=== PATIENT | female | born 1960 | race Caucasian/White ===

== ENCOUNTER → 2016-05-27 | Outpatient (CLI) | payer BC ==
--- NOTE | 2016-05-27 09:06 | MR ---
EXAMINATION TYPE: MR brain wo/w con, MR angio head wo con DATE OF EXAM: 05/27/2016 8:27 AM COMPARISON: 01/25/2012 HISTORY: 55-year-old female with headache, dizziness, right facial numbness, evaluate for TIA, cerebr al infarction. ( Headache, dizziness, rt facial numbness (accession [id number]) TECHNIQUE: Multiplanar, multisequence images of the brain and brainstem were acquired before and aft er administration of 14 mL IV MultiHance. Diffusion weighted imaging was performed. Additional high -resolution 3-D [id number] imaging of the [place] was performed. Rotational 3-D reconst ructions were generated on a dedicated independent workstation. FINDINGS: MRI: No evidence for acute infarction, hemorrhage, mass, mass effect, midline shift, herniation, effacemen t of basal cisterns, or extra-axial fluid collection. The ventricles and sulci are age-appropriate. Major intracranial flow voids are intact. T2/FLAIR weighted sequences show overall stable mild scattered burden of white white matter change in the subcortical and deep white matter of both cerebral hemispheres as well as the right paramedian p ons. Overall findings are stable. A few new foci may be present as compared to 2011. Midline structures demonstrate normal morphology. Minimal benign cerebellar tonsillar ectopia of 2 mm . Otherwise, the craniocervical junction is normal. Post contrast images demonstrate no evidence of pathologic enhancement. Moderate mucosal thickening ethmoid air cells. Otherwise, there is mild mucosal thickening in the fro ntal and maxillary sinuses. Leftward nasal septal deviation. Globes are intact. There is partial opac ification of the left mastoid air cells also noted. 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 Otherwise, no significant stenosis, arterial occlusion, or aneurysmal changes seen. IMPRESSION: 1. No acute intracranial abnormality seen. 2. Overall stable mild scattered burden of T2 bright white matter change, nonspecific, but likely ref lecting chronic small vessel ischemic disease. Only a few foci of bright signal may be new from 2012 . 3. Chronic paranasal sinus disease, moderate within the ethmoid air cells. 4. Opacification in the left mastoid air cells could represent retained secretions. Correlate for any mastoid pain to exclude mastoiditis. 5. 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 Otherwise, unremarkable MRA.
== END | disposition home or self-care (01) ==
LOC: RADMRIMAIN 07:33
PROVIDERS: ATTEND Psychiatry & Neurology Neurology
DX: G45.9 Transient cerebral ischemic attack, unspecified (principal); I63.9 Cerebral infarction, unspecified
CPT/HCPCS: 70544; 70553; A9577

== ENCOUNTER → 2018-12-03 | Outpatient (CLI) | payer BC ==
--- NOTE | 2018-12-04 13:35 | MM ---
Reason for exam: screening (asymptomatic). Last mammogram was performed 4 years and 11 months ago. History: Patient is postmenopausal. Cyst aspiration of the right breast, 2002. Physical Findings: A clinical breast exam by your physician is recommended on an annual basis and results should be correlated with mammographic findings. MG 3D Screening Mammo W/Cad Bilateral CC and MLO view(s) were taken. Prior study comparison: January 06, 2014, bilateral MG screening mammo w CAD. January 03, 2013, bilateral digital screening mammo w/CAD. The breast tissue is heterogeneously dense. This may lower the sensitivity of mammography. There are benign appearing round calcifications bilaterally. There is no discrete abnormality. ASSESSMENT: Benign, BI-RAD 2 RECOMMENDATION: Routine screening mammogram of both breasts in 1 year.
== END | disposition home or self-care (01) ==
LOC: RADMAMWWP 06:53
PROVIDERS: ATTEND Family Medicine
DX: Z12.31 Encounter for screening mammogram for malignant neoplasm of breast (principal)
CPT/HCPCS: 77063; 77067

== ENCOUNTER → 2019-11-14 | Outpatient (CLI) | payer BC ==
--- NOTE | 2019-11-14 13:01 | CT ---
EXAMINATION TYPE: CT abdomen pelvis w con DATE OF EXAM: 11/14/2019 COMPARISON: CT 05/20/2015 HISTORY: Collagenous colitis. Right lower quadrant pain with right leg swelling x [address] DLP: 955.5 mGycm Automated exposure control for dose reduction was used. TECHNIQUE: Helical acquisition of images from the lung bases through the pelvis have been completed. CONTRAST: Performed with Oral Contrast and with IV Contrast, patient injected with 100 mL of Isovue M300. FINDINGS: Postop changes are noted at the gastroesophageal junction. LUNG BASES: No significant abnormality is appreciated. AORTA: No significant abnormality is appreciated. LIVER/GB: The liver is enlarged and shows low-attenuation likely due to hepatic steatosis, gallbladde r is normal. PANCREAS: No significant abnormality is seen. SPLEEN: No significant abnormality is seen. ADRENALS: No significant abnormality is seen. KIDNEYS: No significant abnormality is seen. Cortical cyst associated with the right kidney in exophy tic location is stable. Normal excretion. REPRODUCTIVE ORGANS: No significant abnormality is seen BOWEL: There are some distended loops of small bowel in the mid jejunum, left abdomen some thickenin g of the fourth portion of duodenum ocasio are noted. The appendix is normal. FREE AIR: No Free Air visible. ASCITES: None visible. PELVIC ADENOPATHY: None visualized. RETROPERITONEAL ADENOPATHY: No Retroperitoneal Adenopathy visible. URINARY BLADDER: No significant abnormality is seen. OSSEOUS STRUCTURES: No significant abnormality is seen. IMPRESSION: SOME FOCALLY DILATED LOOPS OF SMALL BOWEL WITHOUT EVIDENT OBSTRUCTION IN THE JEJUNUM IS INDETERMINATE WITH SOME POSSIBLE LOCAL ENTERITIS, THERE IS NO EVIDENT BOWEL OBSTRUCTION. HEPATOMEGALY, HEPATIC DANIELLE ATOSIS..
== END | disposition home or self-care (01) ==
LOC: RADCTMAIN 10:07
PROVIDERS: ATTEND Family Medicine
DX: K76.0 Fatty (change of) liver, not elsewhere classified (principal); R16.0 Hepatomegaly, not elsewhere classified; K63.89 Other specified diseases of intestine
CPT/HCPCS: 74177; Q9967 ×2

== ENCOUNTER → 2021-09-19 | Outpatient (CLI) | payer BC ==
--- NOTE | 2021-09-20 08:29 | MM ---
Reason for Exam: Screening (asymptomatic). Last mammogram was performed 2 year(s) and 10 month(s) ago. Patient History: Menarche at age 16. First Full-Term at age 19. Left ovary removed at age 50. Right ovary removed at age 50. Hysterectomy at age 50. Postmenopausal. 2002, Cyst Aspiration on the Right side. Risk Values: Dalia 5 year model risk: 0.9%. NCI Lifetime model risk: 4.9%. Prior Study Comparison: 01/03/2013 Bilateral Screening Mammogram, [facility]. 01/06/2014 Bilateral Screening Mammogram, [facility]. 12/03/2018 Bilateral Screening Mammogram, [facility]. Tissue Density: The breast tissue is almost entirely fat. Findings: Analyzed By CAD. There is no suspicious group of microcalcifications or new suspicious mass in either breast. Overall Assessment: Negative, BI-RAD 1 Management: Screening Mammogram of both breasts in 1 year. A clinical breast exam by your physician is recommended on an annual basis and results should be correlated with mammographic findings. Electronically signed and approved by: Vinicius Calzada DO
== END | disposition home or self-care (01) ==
LOC: RADMAMWWP 16:32
PROVIDERS: ATTEND Family Medicine
DX: Z12.31 Encounter for screening mammogram for malignant neoplasm of breast (principal)
CPT/HCPCS: 77067

== ENCOUNTER → 2023-09-10 | Outpatient (CLI) | payer BC ==
--- NOTE | 2023-09-10 08:54 | CTL ---
EXAMINATION TYPE: CT Low Dose Lung DATE OF EXAM ORDERED: 09/10/2023 HISTORY: . Lung cancer screening CT DLP: 108.[address] CTDI: 3.1 mGy Automated exposure control for dose reduction was used. SCREENING VISIT: COMPARISON: 03/27/2022 TECHNIQUE: Low dose computed tomography scan was performed through the chest at 1 mm thick sections a nd reconstructed images in multiple planes at 1 mm and [address] DIAGNOSTIC QUALITY: Satisfactory FINDINGS: There is biapical pleural based thickening. Underlying edematous changes subpleural nodularity is sta ble in the upper lobes. There is a 5 mm nodule in the left upper lobe anteriorly on image 60 series 4 in retrospect are stabl e. An additional subpleural nodules are all unchanged in appearance and size. Calcified nodule in the left subpleural lower lobe image 188 series 4 is stable and has a benign appearance. No consolidative pneumonia or pulmonary edema. No pleural effusion or pneumothorax. The aorta is normal-caliber with mild atherosclerotic change. Moderate coronary artery calcification. Main pulmonary trunk is within normal limits. Mild pericardial lipomatosis trace pericardial fluid. Small hiatal hernia. Mild thickening of the adrenal glands likely related to benign adenoma or hyperp lasia. The distal esophagus associated with reflux esophagitis. Postsurgical change at the epigastriu m. Multilevel degenerative changes of the spine. Assessment for adenopathy limited by lack of contrast. Grossly no obvious pathologic adenopathy. Calc ified lymph nodes suggest chronic granulomatous disease. IMPRESSION: 1. Stable biapical pleural thickening or scarring. 2. Multiple subpleural areas of pleural thickening or nodularity are stable. Findings are benign appe arance. 3. COPD CT LUNG RAD AND CT CHEST RECOMMENDATION: Lung-Rad 2 Benign Appearance or Behavior: Continue annual sc reening with LDCT in 12 months.
== END | disposition home or self-care (01) ==
LOC: RADCTMAIN 08:13
PROVIDERS: ATTEND Family Medicine
DX: Z12.2 Encounter for screening for malignant neoplasm of respiratory organs (principal); J44.9 Chronic obstructive pulmonary disease, unspecified; F17.210 Nicotine dependence, cigarettes, uncomplicated
CPT/HCPCS: 71271

== ENCOUNTER → 2024-03-13 | Outpatient (CLI) | payer BC ==
[2024-03-13 14:31] LABS: African American GFR (CKD) 73 (>60 ml/min/1.73 sqM); Blood Urea Nitrogen 14 mg/dL (7-17); Non-African American GFR(CKD) 63 (>60 ml/min/1.73 sqM)
--- NOTE | 2024-03-14 18:22 | CT ---
EXAMINATION TYPE: CT urogram wo/w con CT DLP: 1461.8 mGycm, Automated exposure control for dose reduction was used. DATE OF EXAM: 03/13/2024 4:50 PM COMPARISON: CT abdomen pelvis 11/14/2019, 05/20/2015 CLINICAL INDICATION:Female, 63 years old with history of R31.29 OTHER MICROSCOPIC HEMATURIA; PHH, [place] rohematuria and pain in lower abdomen/back TECHNIQUE: Urogram of the abdomen and pelvis was performed before and after the administration of 100 cc of IV c ontrast Isovue 300 contrast. Delayed imaging was performed. Coronal and sagittal reformats were perfo rmed. One or more CT dose reduction strategies were utilized during this examination. 2D and 3D recon structions are performed to assist visualization of the urinary tract on a separate workstation. FINDINGS: GENITOURINARY: RIGHT KIDNEY AND URETER: No calculi. No hydronephrosis or hydroureter. Lobulated appearance to the ki dney. Right renal superior pole 1.5 cm cyst. Additional mid right renal exophytic 2.2 cm simple cyst. No enhancing renal lesion. No urothelial lesions: no filling defect, dilation, stricture or wall thi ckening. LEFT KIDNEY AND URETER: No calculi. No hydronephrosis or hydroureter. Lobulated appearance to the kid megan. Subcentimeter cortical upper pole cyst. No enhancing renal lesion. Focal region of cortical atro phy involving the lower pole of the left kidney. No urothelial lesions: no filling defect, dilation, stricture or wall thickening. URINARY BLADDER: Moderately well distended. Normal, no calculi, mass or other lesions. REPRODUCTIVE: Posthysterectomy changes. ABDOMEN LIVER: Small region of low attenuation adjacent to the falciform ligament most consistent with focal fatty infiltration. Mildly enlarged liver measuring 19.1 cm in CC dimension. GALLBLADDER AND BILE DUCTS: Unremarkable PANCREAS: Unremarkable. SPLEEN: Unremarkable. ADRENAL GLANDS: Unremarkable. STOMACH AND BOWEL: Postsurgical changes at the GE junction from hernia repair. Few scattered distal c olonic diverticula without evidence of acute diverticulitis. No focal bowel wall thickening or surrou nding inflammatory changes. The appendix is within normal limits. No evidence of bowel obstruction. PERITONEUM: No evidence of pneumoperitoneum, free fluid, or adenopathy. VASCULATURE: Mild atherosclerotic calcifications are present throughout the abdominal aorta and its b ranches. No abdominal aortic aneurysm. MUSCULOSKELETAL: No acute osseous abnormalities. Minimal multilevel degenerative disc disease. SOFT TISSUE/ABDOMINAL WALL: Unremarkable. LOWER CHEST: No significant findings. IMPRESSION: 1. No evidence of urolithiasis or enhancing suspicious renal/urothelial neoplasm. Couple of bilateral simple renal cysts. 2. Scattered colonic diverticulosis without evidence for acute diverticulitis. 3. Mild hepatomegaly. [facility], , 03/14/2024 6:20 PM
== END | disposition home or self-care (01) ==
LOC: RADCTMAIN 13:50
PROVIDERS: ATTEND Family Medicine
DX: K57.30 Diverticulosis of large intestine without perforation or abscess without bleeding (principal); R31.29 Other microscopic hematuria; R16.2 Hepatomegaly with splenomegaly, not elsewhere classified; N28.1 Cyst of kidney, acquired
CPT/HCPCS: 82565; 84520; 74178; 36415; 74400; Q9967

== ENCOUNTER → 2024-05-19 | Outpatient (CLI) | payer BC ==
--- NOTE | 2024-05-19 07:25 | MM ---
Reason for Exam: Screening (asymptomatic). Last mammogram was performed 2 year(s) and 7 month(s) ago. Patient History: Menarche at age 16. First Full-Term at age 19. Left ovary removed at age 50. Right ovary removed at age 50. Hysterectomy at age 50. Postmenopausal. 2002, Cyst Aspiration on the Right side. Risk Values: Dalia 5 year model risk: 1.0%. NCI Lifetime model risk: 4.4%. Prior Study Comparison: 01/03/2013 Bilateral Screening Mammogram, [facility]. 01/06/2014 Bilateral Screening Mammogram, [facility]. 12/03/2018 Bilateral Screening Mammogram, [facility]. 09/19/2021 Bilateral MG screening mammo w CAD, [facility]. Tissue Density: There are scattered areas of fibroglandular density. Findings: Analyzed By CAD. There is no suspicious group of microcalcifications or new suspicious mass in either breast. Overall Assessment: Benign, BI-RAD 2 Management: Screening Mammogram of both breasts in 1 year. . Patient should continue monthly self-breast exams. A clinical breast exam by your physician is recommended on an annual basis. This exam should not preclude additional follow-up of suspicious palpable abnormalities. Note on Dalia scores and lifetime risk: 1. A Dalia score greater than 3% is considered moderate risk. If this is the case, consider specialist referral to assess eligibility for a risk reducing agent. 2. If overall lifetime risk for the development of breast cancer is 20% or higher, the patient may qualify for future screening with alternating mammogram and breast MRI. [facility], , 05/19/2024 7:23 AM. Electronically signed and approved by: Bruno Pelaez M.D. Radiologis
== END | disposition home or self-care (01) ==
LOC: RADMAMWWP 06:57
PROVIDERS: ATTEND Family Medicine
DX: Z12.31 Encounter for screening mammogram for malignant neoplasm of breast (principal); R92.323 Mammographic fibroglandular density, bilateral breasts; Z78.0 Asymptomatic menopausal state
CPT/HCPCS: 77067

== ENCOUNTER → 2024-09-15 | Outpatient (CLI) | payer BC ==
--- NOTE | 2024-09-15 10:46 | CTL ---
EXAMINATION TYPE: CT Low Dose Lung DATE OF EXAM: 09/15/2024 10:07 AM COMPARISON: None. CLINICAL INDICATION: Female, 63 years old with history of Z12.2 LUNG CANCER SCREENING, [facility]MOKER, Histor y of tobacco use. TECHNIQUE: Low Dose CT Lung Screening, Low dose computed tomography scan was performed through the est at 1 millimeter thick sections and reconstructed images in the coronal plane at 1 mm thick sectio ns. IV CONTRAST USED: None. SCREENING VISIT: First visit CT DLP: 90.7 mGycm, Automated exposure control for dose reduction was used. CT CTDI: 2.4 mGy FINDINGS: CT DIAGNOSTIC QUALITY: Satisfactory LUNG NODULES: There is biapical pleural based thickening. Underlying edematous changes subpleural no dularity is stable in the upper lobes. Stable scattered sub-5 mm pulmonary nodules. LUNGS: COPD: Severity: Mild Fibrosis: Severity:None Lymph nodes: None Other findings: None RIGHT PLEURAL SPACE: Effusion: None Calcification: None Thickening: None Pneumothorax: None LEFT PLEURAL SPACE: Effusion: None Calcification: None Thickening: None Pneumothorax: None HEART: * Size within normal limits. * No significant coronary artery calcifications. OTHER FINDINGS: Upper abdomen: No significant abnormality Bony thorax: Degenerative changes Supraclavicular region: No significant abnormalityOther: No significant abnormalityI IMPRESSION: 1. No clinically significant pulmonary nodules. 2. Mild emphysema. CT LUNG RAD AND CT CHEST RECOMMENDATION: Lung-Rad 2 Benign Appearance or Behavior: Continue annual sc reening with LDCT in 12 months. S Modifier (other clinically significant findings): [facility], , 09/15/2024 10:43 AM
== END | disposition home or self-care (01) ==
LOC: RADCTMAIN 09:47
PROVIDERS: ATTEND Family Medicine
DX: Z12.2 Encounter for screening for malignant neoplasm of respiratory organs (principal); F17.210 Nicotine dependence, cigarettes, uncomplicated; J43.9 Emphysema, unspecified
CPT/HCPCS: 71271